=== PATIENT | female | born 1970 | race Caucasian/White ===

== ENCOUNTER 2020-09-07 18:46 | Emergency (ER) | payer OTHER, SELFPAY ==
[2020-09-07 18:47] VITALS: BP 104/71; PULSE 74; RESP 14; TEMP 36.6; O2SAT 99; BMI 25.7
--- NOTE | 2020-09-07 18:57 | EX.ED.GENINJ ---
HPI History of Present Illness Chief Complaint: Fall Detail of Chief Complaint: Fall with injury to left ribs Informant: patient Onset/Context/Timing Current Severity: 11/18 Maximum Severity: 01/18 Narrative Narrative: Patient visiting from [place] seeing family. She was walking a playground when she tripped and fell with her left ribs against a wooden rock wall. Patient denies striking her head or loss of consciousness. She complains of pain with movement and deep breath at times. At times her pain is a 10 out of 10. She denies any hemoptysis. Denies significant shortness of breath. Denies abdominal pain. Patient has urinated since the fall and has not noticed any blood in her urine. PFSH PFSH Home Medications oxycodone-acetaminophen 1 tab PO Q6H PRN PRN 5 Days #20 tablet 09/07/20 [Rx Last Taken Unknown] Allergy/AdvReac Type Severity Reaction Status Date / Time No Known Allergies Allergy Verified 09/07/20 18:49 Surgical History (Updated 09/07/20 @ 19:04 by Elizabeth Mariee) H/O: Social History Smoking Status: Never smoker ROS ROS ED Constitutional Constitutional ED: Reports systems reviewed and no addt'l complaints, except as documented; Denies body ache(s), change in weight or chills Eyes Eyes: Denies acute decrease in peripheral vision, change in vision, double vision or loss of vision ENT ENT ED: Reports none; Denies ear pain, lip swelling, loss taste/smell, neck pain, otalgia or sore throat Cardiovascular Cardiovascular: Reports none; Denies abdominal pain, chest pain with activity, leg edema, lightheadedness, palpitations, rapid heart rate or syncope Respiratory/Chest Respiratory/Chest: Reports none; Denies change in mental status, dry cough, dyspnea, hemoptysis, shortness of breath at rest or shortness of breath with exertion Gastrointestinal Gastrointestinal: Reports none; Denies abdominal pain, change in stool character, diarrhea, hematemesis, hematochezia, melena, rectal bleeding or vomiting Genitourinary Genitourinary ED: Reports none and other Details: Left rib injury ; Denies abdominal discomfort, anuria, dysuria, genital pain or polyuria Musculoskeletal Musculoskeletal: Reports none; Denies arthralgias, back pain, difficulty walking, extremity pain, muscle weakness or myalgias Integumentary Reports none; Denies abscess or rash Neurologic Neurologic: Reports none; Denies abnormal gait, confusion, focal weakness, frequent falls, headache(s), loss of vision, numbness, paresthesias, radicular pain, vertigo or weakness Psychiatric Psychiatric: Reports systems reviewed and no addt'l complaints, except as documented and none; Denies behavioral changes, confusion, difficulty concentrating, hallucinations, suicidal ideation, tactile hallucinations or visual hallucinations Endocrine Endocrinology: Denies none, cold intolerance, excessive sweating, fatigue or heat intolerance Hematologic/Lymphatic Hematologic/Lymphatic: Reports none; Denies anemia, easy bleeding or easy bruising Allergic/Immunologic Allergic/Immunologic ED: Denies as per HPI, none, lip swelling, mouth swelling, throat swelling, tongue swelling or hives EXAM Physical Exam Const Vital Signs: 09/07/20 18:47 09/07/20 19:04 Temperature 97.8 F Temperature Source Temporal Pulse Rate 74 Respiratory Rate 14 Respiratory Effort Normal Non-Labored Respiratory Depth Normal Respiratory Pattern Normal Blood Pressure 104/71 Blood Pressure Mean 82 Pulse Ox 99 Oxygen Delivery Method Room Air Positive well nourished and well developed General Appearance ED: well developed and NAD HEENT Reports TM's clear and moist mucous membranes normocephalic and atraumatic; Negative for trauma or tenderness Tympanic Membrane ED: Yes TM's clear Eyes PERRL and EOMs intact bilaterally General Eye ED: Negative for pale conjunctiva or scleral icterus Neck no lymphadenopathy, supple and no JVD General: Negative for tenderness Chest Wall inspection of chest normal; Negative for palpation of chest normal Chest Narrative: Patient has tenderness to palpation of the left lower ribs in the midaxillary and anterior portion of the chest wall. Especially rib 10. No subcu emphysema noted. There is no ecchymosis or bruising to the chest wall noted. Chest: Negative for tenderness Resp normal respiratory effort and clear to auscultation bilaterally Effort and Inspection: Negative for respiratory distress or pain with movement Auscultation: Negative for rhonchi, wheezes or diminished lung sounds Cardio regular rate, regular rhythm, S1 normal heart sound, S2 normal heart sound and no murmurs Peripheral Pulses: pulses 2+ throughout GI normal to inspection, nondistended, normoactive bowel sounds, soft to palpation, non-tender, non-distended and no masses Back/Spine no CVA tenderness and no thoracic nor lumbar tenderness Extremity normal to inspection General Extremety ED: Negative for edema General Extremity: Negative for edema Neuro oriented x3, CN's II-XII intact bilaterally, no sensory deficits noted and gait normal Sensorium / Orientation: awake, alert, oriented to person, oriented to place and oriented to time Motor Exam: strength 5/5 throughout and strength abnormal Psych mental status grossly normal Skin no rashes or lesions noted and no wounds MDM MDM MDM Narrative Medical decision making narrative: Patient received 1 OxyIR tablet in the department. Patient will be given a prescription for Percocet. She is advised to follow-up with her primary care physician within next 5 to 7 days. She is to return if worsening pain, increasing shortness of breath, hemoptysis, or condition should worsen anyway. Radiography Diagnostic Testing: Radiology Impression Ribs w/Chest X-Ray 09/07/20 19:30 IMPRESSION: Negative chest and left ribs series. at 2000 Reported and signed by: Evelio Thomas MD Electronically Signed: Evelio Thomas MD at 19:59 EDT Tel , Service support , 4 view left ribs and chest x-ray obtained interpreted by myself as no acute fractures without evidence of pneumothorax. Radiology in agreement. Discharge Plan Triage Chief Complaint: Fall ED Provider: Zeina Leon Dx/Rx/DC Orders Clinical Impression: Chest wall contusion Instructions: ED Chest Wall Contusion, ED Contusion, Rib Prescriptions: New oxycodone-acetaminophen [oxycodone-acetaminophen] 1 TABLET tablet 1 tab PO Q6H PRN PRN (Reason: chest pain) 5 Days Qty: 20 RF: 0 Primary Care Provider: Care Physician,No Primary Referrals: Care Physician,No Primary [Primary Care Provider] - 5-7 Days Disposition Disposition: Home, self care
[2020-09-07] MEDS: oxyCODONE 5 MG Tablet PO (19:02)
--- NOTE | 2020-09-07 19:30 | RAD_ITS ---
EXAM: XR LEFT RIBS AND AP CHEST, 3 OR MORE VIEWS : 1970 CLINICAL INDICATION: fall TECHNIQUE: Frontal and oblique views of the left ribs and frontal view of the chest. This report was created using [employer] report [employer] technology. COMPARISON: None. FINDINGS: LUNGS AND PLEURAL SPACES: Unremarkable. No consolidation or edema. No pneumothorax. No effusion. HEART: Unremarkable. Cardiac silhouette not enlarged. MEDIASTINUM: Central airways and mediastinal contour are unremarkable. BONES/JOINTS: Unremarkable. No evidence of displaced rib fractures. RAD/Ribs Uni Min 3V w/PA Chest IMPRESSION: Negative chest and left ribs series. at 2000 Reported and signed by: Evelio Thomas MD Electronically Signed: Evelio Thomas MD at 19:59 EDT Tel , Service support ,
[2020-09-07 20:23] VITALS: BP 107/69; PULSE 72; RESP 16
== END 2020-09-07 20:43 | disposition home or self-care (01) ==
PROVIDERS: Emergency Provider Emergency Medicine
DX: S20.212A Contusion of left front wall of thorax, initial encounter (principal); W01.198A Fall on same level from slipping, tripping and stumbling with subsequent striking against other object, initial encounter; Y93.01 Activity, walking, marching and hiking; Y92.838 Other recreation area as the place of occurrence of the external cause
CPT/HCPCS: 71101; 99283